=== PATIENT | male | born 1940 | race Two or more races ===

== ENCOUNTER → 2018-09-26 | Outpatient (CLI) | payer SELFPAY ==
--- NOTE | 2018-09-26 09:29 | CT ---
EXAMINATION TYPE: CT brain wo con DATE OF EXAM: 09/26/2018 HISTORY: Altered mental status. Slurred speech CT DLP: 1121 mGycm. Automated Exposure Control for Dose Reduction was Utilized. TECHNIQUE: CT scan of the head is performed without contrast. COMPARISON: None. FINDINGS: Motion artifact degradation is present. There is no acute intracranial hemorrhage or midli ne shift identified. There is diffuse ventricular and sulcal prominence consistent with diffuse age-r elated cerebral atrophy. There is low-attenuation in the periventricular white matter consistent wit h chronic small vessel ischemic change. 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 The globes are intact and the visualized sinuses are clear. IMPRESSION: No acute intracranial hemorrhage or midline shift. 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
[2018-09-26 10:11] LABS: African American GFR (CKD) >90 (>60 ml/min/1.73 sqM); Anion Gap 9 mmol/L; Blood Urea Nitrogen 14 mg/dL (9-20); Calcium 9.6 mg/dL (8.4-10.2); Carbon Dioxide 27 mmol/L (22-30); Chloride 102 mmol/L (98-107); Glucose 174 mg/dL (74-99); Potassium 4.8 mmol/L (3.5-5.1); Sodium 138 mmol/L (137-145)
== END | disposition home or self-care (01) ==
LOC: RADCTMAIN 08:13
PROVIDERS: ATTEND Internal Medicine
DX: G31.1 Senile degeneration of brain, not elsewhere classified (principal); I67.82 Cerebral ischemia; E11.9 Type 2 diabetes mellitus without complications; I10 Essential (primary) hypertension
CPT/HCPCS: 70450; 80048